=== PATIENT | male | born 1980 | race African-American/Black ===

== ENCOUNTER 2022-05-30 13:45 | Emergency (ER) | payer OTHER ==
[~2022-05-30] VITALS: Ht 162.6 cm; Wt 83.0 kg
[2022-05-30] MEDS ORDERED: OLAN5TAB3 PO (14:22)
[2022-05-30] MEDS ORDERED: METF-440 PO (14:22)
[2022-05-30] MEDS ORDERED: AMLO1CAP2 PO (14:22)
[2022-05-30] MEDS ORDERED: CLONIDINE HCL 0.1 MG TABLET ONE (14:30)
[2022-05-30] MEDS ORDERED: CLONIDINE HCL 0.1 MG TABLET PO ONE (14:30)
[2022-05-30 16:19] VITALS: BP 132/82
== END 2022-05-30 15:40 | disposition home or self-care (01) ==
LOC: ER 13:47
DX: R03.0 Elevated blood-pressure reading, without diagnosis of hypertension (principal); I10 Essential (primary) hypertension; E11.9 Type 2 diabetes mellitus without complications; Z79.899 Other long term (current) drug therapy